=== PATIENT | female | born 1960 | race Caucasian/White ===

== ENCOUNTER → 2017-01-30 | Outpatient (CLI) | payer OTHER ==
[~2017-01-30] MED LIST: IBPROFEN
== END | disposition home or self-care (01) ==
LOC: CVU 06:37
PROVIDERS: ATTEND Surgery
DX: I73.9 Peripheral vascular disease, unspecified (principal); Z86.79 Personal history of other diseases of the circulatory system
CPT/HCPCS: 93922; 93925; 93978